=== PATIENT | male | born 1970 | race Caucasian/White ===

== ENCOUNTER 2017-03-31 08:07 | Emergency (ER) | payer SELFPAY ==
[~2017-03-31 08:07] MED LIST: CEPH500C PO; CYCL10TA9 PO; DOXY100C2 PO; HYDR-1231 PO; HYDR-2997 PO
--- OUTSIDE RECORDS SUMMARY | 2017-04-01 18:19 | XMS REPORT | Continuity of Care Document ---
Author Author [facility] Organization [facility] Address Unknown Phone Unavailable Allergies Active Description Code Type Severity Reaction Onset Reported/Identified Relationship to Patient Clinical Status Yes No Known Drug Allergies [id number] Drug Allergy Mild N/A 10/18/2009 Medications Problems Date Dx Coded Attending Type Code Diagnosis Diagnosed By 03/12/2014 DELIO ZAIDI APRN Ot 873.42 03/12/2014 DELIO ZAIDI APRN Ot E000.0 03/12/2014 DELIO ZAIDI APRN Ot E016.2 03/12/2014 DELIO ZAIDI APRN Ot E888.1 03/12/2014 DELIO ZAIDI APRN Ot V06.1 Procedures Results Encounters ACCT No. Visit Date/Time Discharge Status Pt. Type Provider Facility Loc./Unit Complaint [id number] 03/12/2014 10:19:00 2013 11:25:00 DIS Emergency DELIO ZAIDI APRN [facility] ER
== END 2017-03-31 08:51 | disposition left against medical advice (07) ==
LOC: EDUNIT# 08:07 → ER 08:09
DX: R10.9 Unspecified abdominal pain (principal); Z53.21 Procedure and treatment not carried out due to patient leaving prior to being seen by health care provider

== ENCOUNTER 2017-04-02 14:31 | Inpatient (IN) | payer OTHER ==
[~2017-04-02] VITALS: Ht 175.3 cm; Wt 81.6 kg
--- OUTSIDE RECORDS SUMMARY | 2017-04-02 14:36 | XMS REPORT | Continuity of Care Document ---
Author Author [facility] Organization [facility] Address Unknown Phone Unavailable Allergies Active Description Code Type Severity Reaction Onset Reported/Identified Relationship to Patient Clinical Status Yes No Known Drug Allergies [id number] Drug Allergy Mild N/A 10/18/2009 Medications Problems Date Dx Coded Attending Type Code Diagnosis Diagnosed By 03/12/2014 DELIO ZAIDI APRN Ot 873.42 03/12/2014 DELIO ZAIDI APRN Ot E000.0 03/12/2014 DELIO ZAIDI APRN Ot E016.2 03/12/2014 DELIO ZAIDI APRN Ot E888.1 03/12/2014 DELIO ZAIDI APRN Ot V06.1 Procedures Results Encounters ACCT No. Visit Date/Time Discharge Status Pt. Type Provider Facility Loc./Unit Complaint [id number] 03/12/2014 10:19:00 2013 11:25:00 DIS Emergency DELIO ZAIDI APRN [facility] ER
[2017-04-02 15:00] LABS: KETONES,URINE NEGATIVE (NEGATIVE); LEUKOCYTE ESTERASE ,URINE 1+ (NEGATIVE); NITRITE,URINE NEGATIVE (NEGATIVE); PH,URINE 7 (5-9); PROTEIN,URINE 1+ (NEGATIVE); UROBILINOGEN,URINE NORMAL (NORMAL)
[2017-04-02 15:01] LABS: BASOPHILS % (AUTO) 0 % (0-10); EOSINOPHILS # (AUTO) 0.1 10^3/uL (0.0-0.3); EOSINOPHILS % (AUTO) 2 % (0-10); LYMPHOCYTES # (AUTO) 1.1 X 10^3 (1.0-4.0); LYMPHOCYTES % (AUTO) 18 % (12-44); MEAN CORPUSCULAR HEMOGLOBIN 32 PG (25-34); MEAN CORPUSCULAR HGB CONC 34 G/DL (32-36); MEAN CORPUSCULAR VOLUME 96 FL (80-99); MEAN PLATELET VOLUME 9.1 FL (7.4-10.4); MONOCYTES # (AUTO) 0.8 X 10^3 (0.0-1.0); MONOCYTES % (AUTO) 13 % (0-12); NEUTROPHILS # (AUTO) 4.2 X 10^3 (1.8-7.8); NEUTROPHILS % (AUTO) 68 % (42-75); PLATELET COUNT 316 10^3/uL (130-400); RED CELL DISTRIBUTION WIDTH 12.6 % (10.0-14.5); WHITE BLOOD COUNT 6.2 10^3/uL (4.3-11.0)
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
[2017-04-02 15:13] LABS: BILIRUBIN,URINE 1+ (NEGATIVE); WBC,URINE RARE /HPF
[2017-04-02] MEDS ORDERED: NS IV 1000 ML 1,000 ML IV ONE (15:16)
[2017-04-02] MEDS ORDERED: fentaNYL INJECTION 100 MCG/2 ML AMP IVP STA ×2 (15:16→17:00)
[2017-04-02 15:24] LABS: ALANINE AMINOTRANSFERASE 18 U/L (0-55); ANION GAP 9 MMOL/L (5-14); ASPARTATE AMINO TRANSFERASE 19 U/L (5-34); BILIRUBIN,TOTAL 0.6 MG/DL (0.1-1.0); BLOOD UREA NITROGEN 10 MG/DL (7-18); BUN/CREATININE RATIO 10; CALCIUM 9.3 MG/DL (8.5-10.1); CARBON DIOXIDE 30 MMOL/L (21-32); CHLORIDE 97 MMOL/L (98-107); CREATININE SERUM 1.04 MG/DL (0.60-1.30); GFR ESTIMATED > 60; GLUCOSE 122 MG/DL (70-105); HEMOLYSIS 51 (-100-29); ICTERUS 0.6 (-100-1.9); LIPASE 6 U/L (8-78); LIPEMIA 3 (-100-49); POTASSIUM 4.2 MMOL/L (3.6-5.0); SODIUM 136 MMOL/L (135-145); TOTAL PROTEIN 6.9 GM/DL (6.4-8.2)
[2017-04-02] MEDS ORDERED: ONDANSETRON 4 MG/2 ML (SDV) Z0FRAN IVP ONE (15:30)
[2017-04-02] MEDS ORDERED: NS 100 ML (IVPB) BAG IV ONE ×2 (15:30→15:45)
[2017-04-02] MEDS ORDERED: CATHETER FLUSH 10 ML SYR IV PRN ×3 (15:30→18:30)
[2017-04-02] MEDS ORDERED: IOHEXOL 350 MG/ML 100 ML (OMNIPAQUE 350) VIAL IV ONE ×2 (15:30→15:45)
--- NOTE | 2017-04-02 16:19 | Diagnostic Imaging Report ---
PROCEDURE: CT abdomen and pelvis with contrast, rule out appendicitis. TECHNIQUE: Multiple contiguous axial images were obtained through the abdomen and pelvis after the administration of intravenous contrast. INDICATION: Right abdominal pain and distention. FINDINGS: There is mild dependent atelectasis in the visualized lung bases. There is mild low-density throughout the liver. No focal hepatic or gallbladder abnormality is identified. Spleen and pancreas are also unremarkable in appearance. There is no evidence of adrenal gland lesion. Contrast opacifies both renal collecting systems without evidence of hydronephrosis. There is an approximately 0.4 cm cyst in the lower pole of the right kidney. There is diffuse fluid distention of stomach and proximal small bowel to the level of the ileum. There may be distortion of the omental architecture in the lower abdomen. Distal ileum does demonstrate fluid distention, and there is mild stool seen throughout the colon. The appendix is visualized in the right lower quadrant and is mildly prominent in diameter with a small amount of adjacent free fluid. Mild pelvic free fluid is also noted. There is no organized fluid collection to indicate an abscess. There is moderate mural thickening involving the bladder. IMPRESSION: Mural thickening and dilatation of the proximal small bowel may represent enteritis. Given possible omental distortion in the lower abdomen, possibility of adhesion causing partial obstruction is not excluded. The appendix is prominent measuring approximately 0.7 cm in diameter in the right lower quadrant. Small amount of surrounding free fluid may be sympathetic, and there is also mild pelvic peritoneal fluid present. Acute appendicitis is not excluded but considered somewhat less likely. Mural thickening of the bladder is indicative of cystitis, and correlation with urinalysis would be of value. Dictated by: Dictated on workstation # [id number]
--- OUTSIDE RECORDS SUMMARY | 2017-04-02 17:44 | XMS REPORT | Continuity of Care Document ---
Author Author [facility] Organization [facility] Address Unknown Phone Unavailable Allergies Active Description Code Type Severity Reaction Onset Reported/Identified Relationship to Patient Clinical Status Yes No Known Drug Allergies [id number] Drug Allergy Mild N/A 10/18/2009 Medications Problems Date Dx Coded Attending Type Code Diagnosis Diagnosed By 03/12/2014 DELIO ZAIDI APRN Ot 873.42 03/12/2014 DELIO ZAIDI APRN Ot E000.0 03/12/2014 DELIO ZAIDI APRN Ot E016.2 03/12/2014 DELIO ZAIDI APRN Ot E888.1 03/12/2014 DELIO ZAIDI APRN Ot V06.1 Procedures Results Encounters ACCT No. Visit Date/Time Discharge Status Pt. Type Provider Facility Loc./Unit Complaint [id number] 03/12/2014 10:19:00 2013 11:25:00 DIS Emergency DELIO ZAIDI APRN [facility] ER
--- NOTE | 2017-04-02 18:06 | Diagnostic Imaging Report ---
INDICATION: NG tube placement KUB obtained at 5:53 hours p.m. FINDINGS: There is an NG tube seen with tip overlying the proximal stomach. The heart is normal in size. The lungs are clear. There is no pneumothorax or pleural fluid. IMPRESSION: NG tube tip overlying the proximal stomach. No focal infiltrate or pneumothorax or pleural fluid. Dictated by: Dictated on workstation # [id number]
[2017-04-02 18:15] VITALS: BP 135/80
[2017-04-02] MEDS: NS IV 1000 ML 1,000 ML IV SCH (18:27)
[2017-04-02] MEDS ORDERED: KETOROLAC 30 MG/ML VIAL IV PRN (18:30)
[2017-04-02] MEDS ORDERED: CHLORASEPTIC SPRAY 177 ML LIQUID MC PRN (18:30)
[2017-04-02] MEDS ORDERED: PROMETHAZINE INJ 25 MG/ML (PHENERGAN) AMP IV PRN (18:30)
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
[2017-04-02 19:55] VITALS: BP 130/71
[2017-04-02] MEDS: morphine INJ 4 MG/ML 1 ML (VIAL/SYRINGE) IV PRN ×2 (20:09→22:51)
[2017-04-02] MEDS: FAMOTIDINE 20MG/2ML IV (PEPCID) IV SCH (20:09)
[2017-04-02] MEDS: NICOTINE 21 MG (NICODERM) PATCH TD SCH (20:37)
[2017-04-02] MEDS: ONDANSETRON 4 MG/2 ML (SDV) Z0FRAN IV PRN (20:37)
[2017-04-03] VITALS: BP 117/69
[2017-04-03] MEDS: morphine INJ 4 MG/ML 1 ML (VIAL/SYRINGE) IV PRN ×6 (01:07→23:00)
[2017-04-03] MEDS: NS IV 1000 ML 1,000 ML IV SCH ×5 (01:30→23:00)
[2017-04-03 04:00] VITALS: BP 124/69
[2017-04-03 05:35] LABS: BASOPHILS % (AUTO) 0 % (0-10); EOSINOPHILS # (AUTO) 0.2 10^3/uL (0.0-0.3); EOSINOPHILS % (AUTO) 3 % (0-10); LYMPHOCYTES % (AUTO) 17 % (12-44); MEAN CORPUSCULAR HEMOGLOBIN 32 PG (25-34); MEAN CORPUSCULAR HGB CONC 33 G/DL (32-36); MEAN CORPUSCULAR VOLUME 97 FL (80-99); MEAN PLATELET VOLUME 9.2 FL (7.4-10.4); MONOCYTES # (AUTO) 0.9 X 10^3 (0.0-1.0); MONOCYTES % (AUTO) 15 % (0-12); NEUTROPHILS # (AUTO) 3.9 X 10^3 (1.8-7.8); NEUTROPHILS % (AUTO) 66 % (42-75); PLATELET COUNT 266 10^3/uL (130-400); RED BLOOD COUNT 4.63 10^6/uL (4.35-5.85); RED CELL DISTRIBUTION WIDTH 12.5 % (10.0-14.5); WHITE BLOOD COUNT 5.9 10^3/uL (4.3-11.0)
[2017-04-03 05:52] LABS: ALANINE AMINOTRANSFERASE 17 U/L (0-55); ALBUMIN 3.4 GM/DL (3.2-4.5); ANION GAP 9 MMOL/L (5-14); ASPARTATE AMINO TRANSFERASE 17 U/L (5-34); BILIRUBIN,TOTAL 0.7 MG/DL (0.1-1.0); BLOOD UREA NITROGEN 10 MG/DL (7-18); BUN/CREATININE RATIO 9; CALCIUM 8.6 MG/DL (8.5-10.1); CARBON DIOXIDE 27 MMOL/L (21-32); CHLORIDE 103 MMOL/L (98-107); CREATININE SERUM 1.09 MG/DL (0.60-1.30); GFR ESTIMATED > 60; GLUCOSE 97 MG/DL (70-105); POTASSIUM 4.2 MMOL/L (3.6-5.0); SODIUM 139 MMOL/L (135-145); TOTAL PROTEIN 6.1 GM/DL (6.4-8.2)
[2017-04-03] MEDS: ONDANSETRON 4 MG/2 ML (SDV) Z0FRAN IV PRN ×2 (06:59→17:26)
[2017-04-03 07:49] VITALS: BP 130/81
[2017-04-03] MEDS ORDERED: DIATRIZOATE MEGLUM/SODIUM 37% 120 ML (GASTROGRAFIN) NG ONE (09:15)
[2017-04-03] MEDS: NICOTINE 21 MG (NICODERM) PATCH TD SCH (09:34)
[2017-04-03] MEDS: NICOTINE PATCH REMOVAL TP SCH (09:35)
[2017-04-03] MEDS: FAMOTIDINE 20MG/2ML IV (PEPCID) IV SCH ×2 (09:41→20:32)
--- NOTE | 2017-04-03 11:44 | Progress Note ---
Subjective Date Seen by Provider: Apr 03, 2017 Time Seen by Provider: 08:53 Subjective/Events-last exam Patient no new complaints. Not passing any flatus or any bowel movement. Abdominal pain minimal. NG tube in place. Down for small bowel follow- through. Denies any nausea vomiting fever sweats chills shortness of breath or chest pain. Objective Exam Vital Signs Date Time Temp Pulse Resp B/P (MAP) Pulse Ox O2 Delivery O2 Flow Rate FiO2 04/03/17 07:49 99.1 96 20 130/81 97 Room Air 04/03/17 04:00 98.9 85 18 124/69 93 Room Air 04/03/17 00:00 98.1 86 16 117/69 97 Room Air 04/02/17 20:10 Room Air 04/02/17 19:55 96.8 76 16 130/71 99 Room Air 04/02/17 18:15 96.8 77 12 135/80 100 Room Air 04/02/17 18:05 71 18 100 Room Air 04/02/17 14:35 98.0 79 18 141/90 98 Room Air I & O 04/03/17 07:00 Intake Total 2000 ml Output Total 1150 ml Balance 850 ml Capillary Refill : Less Than 3 Seconds General Appearance: WD/WN HEENT: PERRL/EOMI Neck: Normal Inspection, Non Tender Respiratory: Chest Non Tender, No Accessory Muscle Use, No Respiratory Distress Cardiovascular: Regular Rate, Rhythm Peripheral Pulses: 2+ Dorsalis Pedis (R), 2+ Left Dors-Pedis (L), 2+ Radial Pulses (R), 2+ Radial Pulses (L) Gastrointestinal: normal bowel sounds, soft, distended, rebound, tenderness ( generalized tenderness minimal), No mass, other Extremity: Non Tender, No Calf Tenderness Neurologic/Psychiatric: Alert, Oriented x3 Skin: Normal Color, Warm/Dry Results Lab Laboratory Tests 04/02/17 14:45: Urine Color YELLOW, Urine Clarity CLEAR, Urine pH 7, Urine Specific [place] 1.015L, Urine Protein 1+H, Urine Glucose (UA) NEGATIVE, Urine Ketones NEGATIVE, Urine Nitrite NEGATIVE, Urine Bilirubin 1+H, Urine Urobilinogen NORMAL, Urine Leukocyte Esterase 1+H, Urine RBC (Auto) NEGATIVE, Urine RBC RARE, Urine WBC RARE, Urine Squamous Epithelial Cells 2-5, Urine Crystals PRESENTH, Urine Amorphous Sediment FEW AMRIT URATESH, Urine Bacteria NEGATIVE, Urine Casts NONE, Urine Mucus NEGATIVE, Urine Culture Indicated NO 04/02/17 14:53: White Blood Count 6.2, Red Blood Count 4.90, Hemoglobin 15.8, Hematocrit 47, Mean Corpuscular Volume 96, Mean Corpuscular Hemoglobin 32, Mean Corpuscular Hemoglobin Concent 34, Red Cell Distribution Width 12.6, Platelet Count 316, Mean Platelet Volume 9.1, Neutrophils (%) (Auto) 68, Lymphocytes (%) (Auto) 18, Monocytes (%) (Auto) 13H, Eosinophils (%) (Auto) 2, Basophils (%) (Auto) 0, Neutrophils # (Auto) 4.2, Lymphocytes # (Auto) 1.1, Monocytes # (Auto) 0.8, Eosinophils # (Auto) 0.1, Basophils # (Auto) 0.0, Sodium Level 136, Potassium Level 4.2, Chloride Level 97L, Carbon Dioxide Level 30, Anion Gap 9, Blood Urea Nitrogen 10, Creatinine 1.04, Estimat Glomerular Filtration Rate > 60, BUN/ Creatinine Ratio 10, Glucose Level 122H, Calcium Level 9.3, Total Bilirubin 0.6 , Aspartate Amino Transf (AST/SGOT) 19, Alanine Aminotransferase (ALT/SGPT) 18, Alkaline Phosphatase 71, Total Protein 6.9, Albumin 4.0, Lipase 6L 04/03/17 05:20: White Blood Count 5.9, Red Blood Count 4.63, Hemoglobin 14.8, Hematocrit 45, Mean Corpuscular Volume 97, Mean Corpuscular Hemoglobin 32, Mean Corpuscular Hemoglobin Concent 33, Red Cell Distribution Width 12.5, Platelet Count 266, Mean Platelet Volume 9.2, Neutrophils (%) (Auto) 66, Lymphocytes (%) (Auto) 17, Monocytes (%) (Auto) 15H, Eosinophils (%) (Auto) 3, Basophils (%) (Auto) 0, Neutrophils # (Auto) 3.9, Lymphocytes # (Auto) 1.0, Monocytes # (Auto) 0.9, Eosinophils # (Auto) 0.2, Basophils # (Auto) 0.0, Sodium Level 139, Potassium Level 4.2, Chloride Level 103, Carbon Dioxide Level 27, Anion Gap 9, Blood Urea Nitrogen 10, Creatinine 1.09, Estimat Glomerular Filtration Rate > 60, BUN/ Creatinine Ratio 9, Glucose Level 97, Calcium Level 8.6, Total Bilirubin 0.7, Aspartate Amino Transf (AST/SGOT) 17, Alanine Aminotransferase (ALT/SGPT) 17, Alkaline Phosphatase 62, Total Protein 6.1L, Albumin 3.4 Assessment/Plan Assessment/Plan Assessment/Plan Partial bowel obstruction. Nausea and vomiting. Generalized abdominal pain History of exploratory laparotomy await small bowel follow trough results. npo. NG tube to LIWS scd's for dvt prophylaxis Clinical Quality Measures DVT/VTE Risk/Contraindication: Risk Factor Score Per Nursin RFS Level Per Nursing on Admit: 2=Moderate BETH OLSON DO Apr 03, 2017 11:43
[2017-04-03 12:00] VITALS: BP 124/70
[2017-04-03 15:40] VITALS: BP 124/73
--- NOTE | 2017-04-03 17:22 | Diagnostic Imaging Report ---
EXAMINATION: Small bowel follow-through. 120 mL of Gastrografin was introduced. The patient has an NG tube which was utilized for transfer of Gastrografin injection. INDICATION: Partial small bowel obstruction. FINDINGS: Technology Development Intern image was performed and demonstrates dilated small bowel loops. There is air in the colon and a small amount of thickening within the right colon. The stomach and proximal small bowel loops which are dilated, unopacified. However, despite imaging for 9 hours, the ileum is not opacified. Based on the presence of colonic air, this is the likely related to a high-grade partial small bowel obstruction. IMPRESSION: Findings suggestive of a distal high-grade small bowel obstruction. Findings were discussed with Dr. Perez at time of dictation. Dictated by: Dictated on workstation # [id number]
[2017-04-03 19:50] VITALS: BP 137/80
[2017-04-04] VITALS (7 sets, daily range): BP systolic 120–139; BP diastolic 65–79
[2017-04-04] MEDS: NS IV 1000 ML 1,000 ML IV SCH ×4 (04:31→19:46)
[2017-04-04] MEDS: ONDANSETRON 4 MG/2 ML (SDV) Z0FRAN IV PRN ×2 (05:50→19:46)
[2017-04-04] MEDS: morphine INJ 4 MG/ML 1 ML (VIAL/SYRINGE) IV PRN ×2 (05:50→19:46)
[2017-04-04 06:53] LABS: MEAN PLATELET VOLUME 9.1 FL (7.4-10.4); RED BLOOD COUNT 4.61 10^6/uL (4.35-5.85); RED CELL DISTRIBUTION WIDTH 12.4 % (10.0-14.5); WHITE BLOOD COUNT 4.4 10^3/uL (4.3-11.0)
[2017-04-04 07:12] LABS: ALANINE AMINOTRANSFERASE 14 U/L (0-55); ALBUMIN 3.6 GM/DL (3.2-4.5); ANION GAP 13 MMOL/L (5-14); ASPARTATE AMINO TRANSFERASE 14 U/L (5-34); BILIRUBIN,TOTAL 0.7 MG/DL (0.1-1.0); BLOOD UREA NITROGEN 14 MG/DL (7-18); BUN/CREATININE RATIO 15; CALCIUM 8.6 MG/DL (8.5-10.1); CARBON DIOXIDE 23 MMOL/L (21-32); CHLORIDE 105 MMOL/L (98-107); CREATININE SERUM 0.95 MG/DL (0.60-1.30); GFR ESTIMATED > 60; GLUCOSE 92 MG/DL (70-105); MAGNESIUM 2.3 MG/DL (1.8-2.4); PHOSPHORUS 3.2 MG/DL (2.3-4.7); POTASSIUM 4.3 MMOL/L (3.6-5.0); SODIUM 141 MMOL/L (135-145); TOTAL PROTEIN 6.2 GM/DL (6.4-8.2)
--- NOTE | 2017-04-04 08:54 | Diagnostic Imaging Report ---
Upright and supine views of the abdomen. INDICATION: Followup small bowel obstruction. FINDINGS: There is persistent dilatation of the small bowel loops mostly in the left upper quadrant, perhaps slightly improved compared to 04/03/17 small bowel follow-through. Still significant air-fluid levels are seen. There is air and fecal material noted in the colon and rectum suggestive of partial obstruction. NG tube is seen. No pneumoperitoneum. IMPRESSION: Findings suggestive of partial small bowel obstruction with suggestion of slight improvement compared to 04/03/17. Dictated by: Dictated on workstation # [id number]
--- NOTE | 2017-04-04 09:02 | Progress Note ---
Subjective Time Seen by Provider: 08:57 Subjective/Events-last exam Patient resting in bed. Even respirations. No distress. Reports he is passing a lot of flatus. Objective Exam Vital Signs Date Time Temp Pulse Resp B/P (MAP) Pulse Ox O2 Delivery O2 Flow Rate FiO2 04/04/17 04:17 99.8 97 18 120/66 96 Room Air 04/04/17 00:53 100.0 90 19 126/68 94 Room Air 04/03/17 19:50 99.6 88 18 137/80 98 Room Air 04/03/17 15:40 99.2 90 18 124/73 96 Room Air 04/03/17 12:00 95.9 80 20 124/70 96 Room Air I & O 04/04/17 07:00 Intake Total 2000 ml Output Total 2980 ml Balance -980 ml Capillary Refill : Less Than 3 Seconds General Appearance: WD/WN HEENT: PERRL/EOMI Neck: Normal Inspection, Non Tender Respiratory: Chest Non Tender, No Accessory Muscle Use, No Respiratory Distress Cardiovascular: Regular Rate, Rhythm Peripheral Pulses: 2+ Dorsalis Pedis (R), 2+ Left Dors-Pedis (L), 2+ Radial Pulses (R), 2+ Radial Pulses (L) Gastrointestinal: normal bowel sounds, soft, no organomegaly, No mass, other Extremity: Non Tender, No Calf Tenderness Neurologic/Psychiatric: Alert, Oriented x3 Skin: Normal Color, Warm/Dry Results Lab Laboratory Tests Test 04/02/17 14:45 04/02/17 14:53 04/03/17 05:20 04/04/17 06:30 Range/Units Urine Color YELLOW Urine Clarity CLEAR Urine pH 7 5-9 Urine Specific [place] 1.015 L 1.016-1.022 Urine Protein 1+ H NEGATIVE Urine Glucose (UA) NEGATIVE NEGATIVE Urine Ketones NEGATIVE NEGATIVE Urine Nitrite NEGATIVE NEGATIVE Urine Bilirubin 1+ H NEGATIVE Urine Urobilinogen NORMAL NORMAL MG/DL Urine Leukocyte Esterase 1+ H NEGATIVE Urine RBC (Auto) NEGATIVE NEGATIVE Urine RBC RARE /HPF Urine WBC RARE /HPF Urine Squamous Epithelial Cells 2-5 /HPF Urine Crystals PRESENT H /LPF Urine Amorphous Sediment FEW AMRIT URATES H /LPF Urine Bacteria NEGATIVE /HPF Urine Casts NONE /LPF Urine Mucus NEGATIVE /LPF Urine Culture Indicated NO White Blood Count 6.2 5.9 4.4 4.3-11.0 10^3/uL Red Blood Count 4.90 4.63 4.61 4.35-5.85 10^6/uL Hemoglobin 15.8 14.8 14.9 13.3-17.7 G/DL Hematocrit 47 45 45 40-54 % Mean Corpuscular Volume 96 97 97 80-99 FL Mean Corpuscular Hemoglobin 32 32 32 25-34 PG Mean Corpuscular Hemoglobin Concent 34 33 33 32-36 G/DL Red Cell Distribution Width 12.6 12.5 12.4 10.0-14.5 % Platelet Count 316 266 291 130-400 10^3/uL Mean Platelet Volume 9.1 9.2 9.1 7.4-10.4 FL Neutrophils (%) (Auto) 68 66 42-75 % Lymphocytes (%) (Auto) 18 17 12-44 % Monocytes (%) (Auto) 13 H 15 H 0-12 % Eosinophils (%) (Auto) 2 3 0-10 % Basophils (%) (Auto) 0 0 0-10 % Neutrophils # (Auto) 4.2 3.9 1.8-7.8 X 10^3 Lymphocytes # (Auto) 1.1 1.0 1.0-4.0 X 10^3 Monocytes # (Auto) 0.8 0.9 0.0-1.0 X 10^3 Eosinophils # (Auto) 0.1 0.2 0.0-0.3 10^3/uL Basophils # (Auto) 0.0 0.0 0.0-0.1 10^3/uL Sodium Level 136 139 141 135-145 MMOL/L Potassium Level 4.2 4.2 4.3 3.6-5.0 MMOL/L Chloride Level 97 L 103 105 98-107 MMOL/L Carbon Dioxide Level 30 27 23 21-32 MMOL/L Anion Gap 9 9 13 5-14 MMOL/L Blood Urea Nitrogen 10 10 14 7-18 MG/DL Creatinine 1.04 1.09 0.95 0.60-1.30 MG/DL Estimat Glomerular Filtration Rate > 60 > 60 > 60 BUN/Creatinine Ratio 10 9 15 Glucose Level 122 H 97 92 70-105 MG/DL Calcium Level 9.3 8.6 8.6 8.5-10.1 MG/DL Total Bilirubin 0.6 0.7 0.7 0.1-1.0 MG/DL Aspartate Amino Transf (AST/SGOT) 19 17 14 5-34 U/L Alanine Aminotransferase (ALT/SGPT) 18 17 14 0-55 U/L Alkaline Phosphatase 71 62 62 40-136 U/L Total Protein 6.9 6.1 L 6.2 L 6.4-8.2 GM/DL Albumin 4.0 3.4 3.6 3.2-4.5 GM/DL Lipase 6 L 8-78 U/L Phosphorus Level 3.2 2.3-4.7 MG/DL Magnesium Level 2.3 1.8-2.4 MG/DL Laboratory Tests 04/04/17 06:30: White Blood Count 4.4, Red Blood Count 4.61, Hemoglobin 14.9, Hematocrit 45, Mean Corpuscular Volume 97, Mean Corpuscular Hemoglobin 32, Mean Corpuscular Hemoglobin Concent 33, Red Cell Distribution Width 12.4, Platelet Count 291, Mean Platelet Volume 9.1, Sodium Level 141, Potassium Level 4.3, Chloride Level 105, Carbon Dioxide Level 23, Anion Gap 13, Blood Urea Nitrogen 14, Creatinine 0.95, Estimat Glomerular Filtration Rate > 60, BUN/Creatinine Ratio 15, Glucose Level 92, Calcium Level 8.6, Phosphorus Level 3.2, Magnesium Level 2.3, Total Bilirubin 0.7, Aspartate Amino Transf (AST/SGOT) 14, Alanine Aminotransferase ( ALT/SGPT) 14, Alkaline Phosphatase 62, Total Protein 6.2L, Albumin 3.6 Assessment/Plan Assessment/Plan Assessment/Plan Partial bowel obstruction. Patient reports he is passing lots of Flatus. No BM at this time. Nausea and vomiting. Generalized abdominal pain History of exploratory laparotomy npo. NG tube to LIWS. Continue to monitor patient closely. Encourage getting up and walking. scd's for dvt prophylaxis Perez- Patient passing some flatus, but minimal he states to me. Patient walking halls. Feeling slightly better. KUB suggestive of PSBO with some improvement. Denies n/v fever sweats chills shortness of breath or chest pain. general no acute distress heart reg lungs nonlabored abdomen less distended and less tender no guarding or rebounding ext nontender assessment as above- patient feeling better today. will continue to ambulate if continues to improve start diet and dc ng tube kub in am Clinical Quality Measures DVT/VTE Risk/Contraindication: Risk Factor Score Per Nursin RFS Level Per Nursing on Admit: 2=Moderate NABEEL JAEGER APRN Apr 04, 2017 9:02 am BETH PEREZ DO Apr 04, 2017 4:18 pm
[2017-04-04] MEDS: FAMOTIDINE 20MG/2ML IV (PEPCID) IV SCH ×2 (09:17→20:39)
[2017-04-04] MEDS: NICOTINE 21 MG (NICODERM) PATCH TD SCH (09:17)
[2017-04-04] MEDS: NICOTINE PATCH REMOVAL TP SCH (09:18)
[2017-04-05] MEDS: ONDANSETRON 4 MG/2 ML (SDV) Z0FRAN IV PRN (01:53)
[2017-04-05 03:50] VITALS: BP_SYST 127; BP_SYST 130; BP_DIAS 61; BP_DIAS 74
[2017-04-05] MEDS: NS IV 1000 ML 1,000 ML IV SCH (03:52)
== END 2017-04-05 05:40 | disposition home or self-care (01) | DRG 390 ==
LOC: EDUNIT# 14:31 → ER 14:33 → 4TH 17:15
PROVIDERS: ADMIT Surgery; ATTEND Surgery
PROC: 0D9670Z Drainage of Stomach with Drainage Device, Via Natural or Artificial Opening (ICD-10-PCS; principal; 2017-04-02)
DX: K56.60 Unspecified intestinal obstruction (principal); R11.2 Nausea with vomiting, unspecified; R10.84 Generalized abdominal pain; F17.210 Nicotine dependence, cigarettes, uncomplicated
CPT/HCPCS: 36415; 71010; 74020; 74177; 74250; 80053; 81000; 83690; 83735; 84100; 85025; 85027; 96374; 96375; 96376

== ENCOUNTER 2020-08-22 16:35 | Inpatient (IN) | payer SELFPAY ==
[~2020-08-22] VITALS: Ht 175.3 cm; Wt 86.0 kg
[2020-08-22] MEDS ORDERED: cefTRIAXone FOR IV USE 1,000 MG in WATER (STERILE) FOR INJECTION 10 ML IV STA (17:02)
[2020-08-22] MEDS ORDERED: CLINDAMYCIN INJECTION 300 MG in NS (IVPB) 50 ML IV STA (17:02)
[2020-08-22] MEDS ORDERED: fentaNYL INJECTION 100 MCG/2 ML AMP IVP STA (17:06)
[2020-08-22] MEDS ORDERED: VANCOMYCIN INJECTION 750 MG in NS (IVPB) 250 ML IV SCH (17:15)
--- NOTE | 2020-08-22 17:22 | ED Integumentary General ---
General Chief Complaint: Skin/Wound Problems Stated Complaint: INGROWN HAIR ON GROIN Source: patient Exam Limitations: no limitations History of Present Illness Date Seen by Provider: Aug 22, 2020 Time Seen by Provider: 16:45 Initial Comments 50-year-old male presents with ingrown hair on his groin patient reports that started 2 days ago because of drainage since gotten significantly enlarged and painful today. Patient has surrounding warmth and erythema to the skin. That the pain goes up his groin and into his left thigh. Patient states some occasional chills. No other systemic complaints. Allergies and Home Medications Allergies Coded Allergies: No Known Drug Allergies (Unverified , 10/18/09) Home Medications No Active Prescriptions or Reported Meds Patient Home Medication List Home Medication List Reviewed: Yes Review of Systems Review of Systems Constitutional: chills; No fever Respiratory: No cough, No short of breath Cardiovascular: No chest pain, No palpitations Gastrointestinal: No diarrhea, No nausea, No vomiting Genitourinary: no symptoms reported Musculoskeletal: no symptoms reported Skin: see HPI Psychiatric/Neurological: No Symptoms Reported Endocrine: No Symptoms Reported Hematologic/Lymphatic: No Symptoms Reported Past Ewmzqls-Exnnyw-Xymqpp Hx Past Med/Social Hx: Reviewed Nursing Past Med/Soc Hx Patient Social History Type Used: Cigarettes Recent Foreign Travel: No Contact w/Someone Who Travel: No Past Medical History Surgeries: Yes (exp lap with bowel repair DUE TO TRAUMA) Respiratory: No Cardiac: No Neurological: No Genitourinary: No Gastrointestinal: No Musculoskeletal: No Endocrine: No HEENT: No Cancer: No Psychosocial: No Integumentary: No Blood Disorders: No Family Medical History No Pertinent Family Hx Physical Exam Vital Signs Vital Signs - First Documented 08/22/20 16:39 Temp 36.5 Pulse 99 Resp 18 B/P (MAP) 133/68 (89) O2 Delivery Room Air Capillary Refill : General Appearance: mild distress Neck: supple, normal inspection Cardiovascular: normal peripheral pulses, regular rate, rhythm Respiratory: chest non-tender, lungs clear, normal breath sounds Gastrointestinal: non tender, soft Extremities: normal range of motion, non-tender Skin: other (large 10 x 6 cm abscess in the left groin with extension of induration into the left upper thigh with surrounding cellulitis) Skin Problem Location: other (left groin) Skin Problem Character: abscess, drainage, erythema, swelling Progress/Results/Core Measures Results/Orders Lab Results Laboratory Tests Test 08/22/20 17:18 Range/Units White Blood Count 14.1 H 4.3-11.0 10^3/uL Red Blood Count 4.56 4.30-5.52 10^6/uL Hemoglobin 14.2 13.3-17.7 g/dL Hematocrit 43 40-54 % Mean Corpuscular Volume 95 80-99 fL Mean Corpuscular Hemoglobin 31 25-34 pg Mean Corpuscular Hemoglobin Concent 33 32-36 g/dL Red Cell Distribution Width 12.0 10.0-14.5 % Platelet Count 322 130-400 10^3/uL Mean Platelet Volume 9.2 9.0-12.2 fL Sodium Level 133 L 135-145 MMOL/L Potassium Level 3.8 3.6-5.0 MMOL/L Chloride Level 101 98-107 MMOL/L Carbon Dioxide Level 21 21-32 MMOL/L Anion Gap 11 5-14 MMOL/L Blood Urea Nitrogen 8 7-18 MG/DL Creatinine 1.17 0.60-1.30 MG/DL Estimat Glomerular Filtration Rate > 60 BUN/Creatinine Ratio 7 Glucose Level 111 H 70-105 MG/DL Lactic Acid Level 1.45 0.50-2.00 MMOL/L Calcium Level 8.5 8.5-10.1 MG/DL Corrected Calcium 8.7 8.5-10.1 MG/DL Total Bilirubin 0.6 0.1-1.0 MG/DL Aspartate Amino Transf (AST/SGOT) 26 5-34 U/L Alanine Aminotransferase (ALT/SGPT) 31 0-55 U/L Alkaline Phosphatase 110 40-136 U/L C-Reactive Protein High Sensitivity 10.15 H 0.00-0.50 MG/DL Total Protein 7.0 6.4-8.2 GM/DL Albumin 3.8 3.2-4.5 GM/DL My Orders Orders - RICKETTS,TORI L DO Cbc No Diff (08/22/20 16:58) Comprehensive Metabolic Panel (08/22/20 16:58) Hs C Reactive Protein (08/22/20 16:58) Blood Culture (08/22/20 16:58) Lactic Acid Analyzer (08/22/20 16:58) Ed Iv/Invasive Line Start (08/22/20 16:58) Ceftriaxone For Iv Use (Rocephin For I (08/22/20 17:02) Vancomycin Injection (Vancomycin Injecti (08/22/20 17:15) Clindamycin Injection (Cleocin Injection (08/22/20 17:02) Fentanyl Injection (Sublimaze Injection (08/22/20 17:06) Vancomycin Injection (Vancomycin Injecti (08/22/20 17:30) Vital Signs/I&O 08/22/20 16:39 Temp 36.5 Pulse 99 Resp 18 B/P (MAP) 133/68 (89) O2 Delivery Room Air Departure Communication (Admissions) Time/Spoke to Admitting Phy: 17:00 Okay to admit patient, start clindamycin, Vanco, nothing by mouth after midnight Impression Primary Impression: Abscess of left groin Additional Impression: Cellulitis of left thigh Disposition: ADMITTED INPATIENT Condition: Stable Admissions Decision to Admit Reason: Admit from ER (General) Decision to Admit/Date: Aug 22, 2020 Time/Decision to Admit Time: 17:00 Departure-Patient Inst. Referrals: MINH AGGARWAL MD (PCP/Family) Primary Care Physician Scripts No Active Prescriptions or Reported Meds TORI RICKETTS DO Aug 22, 2020 17:22
[2020-08-22 17:27] LABS: HEMOGLOBIN 14.2 g/dL (13.3-17.7); MEAN PLATELET VOLUME 9.2 fL (9.0-12.2); WHITE BLOOD COUNT 14.1 10^3/uL (4.3-11.0)
--- NOTE | 2020-08-22 17:29 | NUR ---
LAB CALLED TO DRAW 2ND BLOOD CULTURE.
[2020-08-22] MEDS ORDERED: VANCOMYCIN 1500 MG/NS 500 ML IVPB IV NR ×2 (17:30)
[2020-08-22 17:42] LABS: ALBUMIN 3.8 GM/DL (3.2-4.5); CHLORIDE 101 MMOL/L (98-107); POTASSIUM 3.8 MMOL/L (3.6-5.0); SODIUM 133 MMOL/L (135-145)
[2020-08-22 17:44] LABS: CALCIUM 8.5 MG/DL (8.5-10.1)
[2020-08-22 17:45] LABS: GLUCOSE 111 MG/DL (70-105)
[2020-08-22 17:46] LABS: CARBON DIOXIDE 21 MMOL/L (21-32)
[2020-08-22 17:47] LABS: BILIRUBIN,TOTAL 0.6 MG/DL (0.1-1.0)
[2020-08-22 17:48] LABS: ALKALINE PHOSPHATASE 110 U/L (40-136)
[2020-08-22 17:49] LABS: CREATININE SERUM 1.17 MG/DL (0.60-1.30); GFR ESTIMATED > 60
[2020-08-22 17:50] LABS: BUN/CREATININE RATIO 7
[2020-08-22 17:52] LABS: ALANINE AMINOTRANSFERASE 31 U/L (0-55)
--- NOTE | 2020-08-22 18:20 | NUR ---
ANKITA STAPLES admitted to room 411-1, with an admitting diagnosis of CELLULITIS AND ABSCESS, on 08/22/20 from ED via WHEELCHAIR, accompanied by ED STAFF.ANKITA STAPLES introduced to surroundings, call light, bed controls, phone, TV, temperature control, lights, meal times, smoking policy, visitor policy, side rail policy, bathrooms and showers. Patient Rights given to patient in the handbook. ANKITA STAPLES verbalizes understanding that [facility] is not responsible for the loss or damage to any personal effects or valuables that are kept in the patients posession during their hospitalization. ANKITA STAPLES verbalizes understanding of Interdisciplinary Patient Education. Patient and/or family were informed about the Rapid Response Team and its purpose.
[2020-08-22] MEDS ORDERED: CATHETER FLUSH 10 ML SYR IV PRN (18:45)
--- NOTE | 2020-08-22 18:46 | NUR ---
CR 1.17; CR CL > 60; WT 86.3 KG; VANCO 1500 MG IV GIVEN IN ER; CONTINUE WITH VANCO 1250 MG IV Q12H; TROUGH AFTER 3RD DOSE
[2020-08-22 18:55] VITALS: BP 103/70
--- NOTE | 2020-08-22 19:30 | NUR ---
MEDICATED WITH [facility] REQUESTED FOR LEFT GROIN PAIN. SITE IS VERY RED AND SWOLLEN. AREA MARKED WITH PEN. DENIES OTHER NEEDS OR CONCERNS.
[2020-08-22] MEDS: fentaNYL INJECTION 100 MCG/2 ML AMP IV PRN (19:39)
[2020-08-22 19:59] VITALS: BP 105/69
[2020-08-22] MEDS: CATHETER FLUSH 10 ML SYR IV SCH (21:05)
[2020-08-22] MEDS: CLINDAMYCIN 600 MG/50 ML IVPB 50 ML IV SCH (21:05)
[2020-08-23] VITALS: BP 103/56
--- NOTE | 2020-08-23 | NUR ---
TEMP. 102.6. TACHY AT 113. SEPSIS RISK. DR. BLISS NOTIFIED AND LR STARTED AT 150 C/HR AND XS TYLENOL STARTED. SMALL LUMP WAS NOTED BY PATIENT UNDER LEFT NIPPLE. WILL BE PASSED ON TO DR. BLISS IN AM.
[2020-08-23] MEDS: fentaNYL INJECTION 100 MCG/2 ML AMP IV PRN ×4 (00:05→21:20)
[2020-08-23] MEDS ORDERED: D5 LR IV SOLUTION 1,000 ML IV SCH (00:30)
[2020-08-23] MEDS ORDERED: ACETAMINOPHEN 500 MG TAB (TYLENOL) ONE (00:33)
[2020-08-23] MEDS ORDERED: LACTATED RINGERS 1,000 ML IV ONE (00:33)
[2020-08-23] MEDS: ACETAMINOPHEN 500 MG TAB (TYLENOL) PO PRN ×3 (00:45→21:20)
[2020-08-23] MEDS: LACTATED RINGERS 1,000 ML IV SCH ×4 (00:48→23:07)
--- NOTE | 2020-08-23 02:00 | NUR ---
HAS BEEN RESTING. TEMP. NOW 99.6.
--- NOTE | 2020-08-23 03:20 | NUR ---
This RN took over patient care at this time. Received report and agree with previous RNs assessment. Patient resting with eyes closed.
[2020-08-23 04:39] VITALS: BP 105/67
[2020-08-23 04:53] LABS: BASOPHILS # (AUTO) 0.1 10^3/uL (0.0-0.1); BASOPHILS % (AUTO) 0 % (0-10); EOSINOPHILS # (AUTO) 0.2 10^3/uL (0.0-0.3); EOSINOPHILS % (AUTO) 2 % (0-10); HEMATOCRIT 40 % (40-54); HEMOGLOBIN 13.4 g/dL (13.3-17.7); LYMPHOCYTES # (AUTO) 2.2 10^3/uL (1.0-4.0); LYMPHOCYTES % (AUTO) 16 % (12-44); MEAN CORPUSCULAR HEMOGLOBIN 31 pg (25-34); MEAN CORPUSCULAR HGB CONC 33 g/dL (32-36); MEAN CORPUSCULAR VOLUME 94 fL (80-99); MEAN PLATELET VOLUME 9.2 fL (9.0-12.2); MONOCYTES # (AUTO) 1.2 10^3/uL (0.0-1.0); MONOCYTES % (AUTO) 9 % (0-12); NEUTROPHILS % (AUTO) 73 % (42-75); PLATELET COUNT 351 10^3/uL (130-400); WHITE BLOOD COUNT 13.7 10^3/uL (4.3-11.0)
[2020-08-23 05:03] LABS: ALBUMIN 3.5 GM/DL (3.2-4.5); CHLORIDE 104 MMOL/L (98-107); SODIUM 138 MMOL/L (135-145)
[2020-08-23 05:04] LABS: CALCIUM 8.4 MG/DL (8.5-10.1)
[2020-08-23 05:05] LABS: GLUCOSE 108 MG/DL (70-105)
[2020-08-23 05:06] LABS: TOTAL PROTEIN 6.4 GM/DL (6.4-8.2)
[2020-08-23 05:07] LABS: BILIRUBIN,TOTAL 0.7 MG/DL (0.1-1.0); CARBON DIOXIDE 24 MMOL/L (21-32)
[2020-08-23 05:09] LABS: ALKALINE PHOSPHATASE 134 U/L (40-136); CREATININE SERUM 1.23 MG/DL (0.60-1.30); GFR ESTIMATED > 60
[2020-08-23 05:10] LABS: BUN/CREATININE RATIO 8
[2020-08-23 05:12] LABS: ALANINE AMINOTRANSFERASE 54 U/L (0-55)
[2020-08-23] MEDS: CLINDAMYCIN 600 MG/50 ML IVPB 50 ML IV SCH ×3 (05:22→23:07)
[2020-08-23] MEDS: VANCOMYCIN 1250 MG/NS 250 ML IVPB IV SCH ×4 (06:12→17:16)
[2020-08-23] MEDS: CATHETER FLUSH 10 ML SYR IV SCH ×3 (06:12→19:29)
[2020-08-23 07:31] VITALS: BP 104/68
[2020-08-23] MEDS: cefTRIAXone 1,000 MG/SWFI 10 ML IV PUSH IV SCH ×2 (08:04)
[2020-08-23] MEDS ORDERED: IBUP-2473 PO (10:03)
--- NOTE | 2020-08-23 10:05 | NUR ---
SPOKE WITH THE PT TO COMPLETE THE MED REC PT DENIES TAKING ANY PRESCRIPTION MEDICATION OTC MEDS: IBUPROFEN 200MG - PT SAYS SHE TAKES 2-3 TABS AT A TIME
[2020-08-23 11:15] VITALS: BP 96/59
--- NOTE | 2020-08-23 12:02 | Consultation - Surgery ---
ALBERTA MARCUS MED STUDENT 08/23/20 1202: History of Present Illness History of Present Illness Patient Consulted On(darling/time) 08/23/20 11:57 Date Seen by Provider: Aug 23, 2020 Time Seen by Provider: 07:00 History of Present Illness Surgery consult for cellulitis/abscess HPI per ED: 50-year-old male presents with ingrown hair on his groin patient reports that s tarted 2 days ago because of drainage since gotten significantly enlarged and painful today. Patient has surrounding warmth and erythema to the skin. That the pain goes up his groin and into his left thigh. Patient states some occasional chills. No other systemic complaints. Pt had ingrown hair 3d ago. He tried squeezing it and had a small amount of yellow-white drainage. It was a quarter size that enlarged the next day. Pt reports pain when pushing on area and is just sore, 9/10 pain. Pain radiates down L inner thigh for a couple of inches. Pt felt like he had a fever and HOLDEN. He tried ibuprofen, silver water (an immune booster), hydrocodone which helped w/ pain relief. Pain is worsened by squeezing and walking. Pt feels swelling has decreased and is 6/10 pain today. Pt denies previous occurrences. Area was outlined. Erythema and swelling has decreased. Area is hard. Allergies and Home Medications Allergies Coded Allergies: No Known Drug Allergies (Unverified , 10/18/09) Home Medications Ibuprofen 200 Mg Tablet, 400-600 MG PO Q8H PRN for PAIN-MILD (1-4), (Reported) Past Uqqclae-Pknvla-Ifuomo Hx Patient Social History Alcohol Use: Occasionally Uses (2-3 beers a couple of times a wk) Recreational Drug Use: Yes (weed, meth) Smoking Status: Current Everyday Smoker (1/2 ppd since 33 years old) Type Used: Cigarettes Recent Foreign Travel: No Contact w/Someone Who Travel: No Recent Infectious Disease Expo: No Surgeries History of Surgeries: Yes (exp lap with bowel repair DUE TO TRAUMA) Surgeries: Abdominal (ruptured intestines 1992 and scar tissue repair 3 yrs ago) Respiratory History of Respiratory Disorde: No Cardiovascular History of Cardiac Disorders: No Neurological History of Neurological Disord: No Genitourinary History of Genitourinary Disor: No Gastrointestinal History of Gastrointestinal Di: No Musculoskeletal History of Musculoskeletal Dis: No Endocrine History of Endocrine Disorders: No HEENT History of HEENT Disorders: No Cancer History of Cancer: No Psychosocial History of Psychiatric Problem: No Integumentary History of Skin or Integumenta: No Blood Transfusions History of Blood Disorders: No Family Medical History Significant Family History: No Pertinent Family Hx, Heart Disease (grandpa - of heart attack), Cancer (grandpa - lung cancer), Other Conditions/Hx (mom - brain tumor) Review of Systems-General Constitutional: chills, diaphoresis, fever EENTM: No ear discharge, No hearing loss, No ear pain, No blurred vision, No double vision, No eye pain Respiratory: No cough, No dyspnea on exertion Cardiovascular: No chest pain Gastrointestinal: No abdominal pain Musculoskeletal: No joint pain Skin: lumps (L Groin) Psychiatric/Neurological: Headache Physical Exam-General Problems Physical Exam Vital Signs Vital Signs - First Documented 08/22/20 08/22/20 16:39 18:03 Temp 36.5 Pulse 99 Resp 18 B/P (MAP) 133/68 (89) Pulse Ox 98 O2 Delivery Room Air Capillary Refill : Less Than 3 SecondsLess Than 3 Seconds General Appearance: WD/WN, no apparent distress HEENT: PERRL/EOMI Neck: supple Respiratory: lungs clear, normal breath sounds, no respiratory distress, no accessory muscle use Cardiovascular: regular rate, rhythm, no murmur Gastrointestinal: non tender, soft Genital/Rectal: tenderness (L groin mass, erythematous, further within borders, hard) Extremities: no pedal edema, no calf tenderness Neurologic/Psychiatric: alert, normal mood/affect, oriented x 3 Data Review Labs Laboratory Tests 08/22/20 17:18: White Blood Count 14.1H, Red Blood Count 4.56, Hemoglobin 14.2, Hematocrit 43, Mean Corpuscular Volume 95, Mean Corpuscular Hemoglobin 31, Mean Corpuscular Hemoglobin Concent 33, Red Cell Distribution Width 12.0, Platelet Count 322, Mean Platelet Volume 9.2, Sodium Level 133L, Potassium Level 3.8, Chloride Level 101, Carbon Dioxide Level 21, Anion Gap 11, Blood Urea Nitrogen 8, Creatinine 1.17, Estimat Glomerular Filtration Rate > 60, BUN/Creatinine Ratio 7, Glucose Level 111H, Lactic Acid Level 1.45, Calcium Level 8.5, Corrected Calcium 8.7, Total Bilirubin 0.6, Aspartate Amino Transf (AST/SGOT) 26, Alanine Aminotransferase (ALT/SGPT) 31, Alkaline Phosphatase 110, C-Reactive Protein High Sensitivity 10.15H, Total Protein 7.0, Albumin 3.8 08/23/20 04:30: White Blood Count 13.7H, Red Blood Count 4.27L, Hemoglobin 13.4, Hematocrit 40, Mean Corpuscular Volume 94, Mean Corpuscular Hemoglobin 31, Mean Corpuscular Hemoglobin Concent 33, Red Cell Distribution Width 12.2, Platelet Count 351, Mean Platelet Volume 9.2, Sodium Level 138, Potassium Level 5.0, Chloride Level 104, Carbon Dioxide Level 24, Anion Gap 10, Blood Urea Nitrogen 10, Creatinine 1.23, Estimat Glomerular Filtration Rate > 60, BUN/Creatinine Ratio 8, Glucose Level 108H, Calcium Level 8.4L, Corrected Calcium 8.8, Total Bilirubin 0.7, Aspartate Amino Transf (AST/SGOT) 46H, Alanine Aminotransferase (ALT/SGPT) 54, Alkaline Phosphatase 134, Total Protein 6.4, Albumin 3.5, Immature Granulocyte % (Auto) 0, Neutrophils (%) (Auto) 73, Lymphocytes (%) (Auto) 16, Monocytes (%) (Auto) 9, Eosinophils (%) (Auto) 2, Basophils (%) (Auto) 0, Neutrophils # (Auto) 10.0H, Lymphocytes # (Auto) 2.2, Monocytes # (Auto) 1.2H, Eosinophils # (Auto) 0.2, Basophils # (Auto) 0.1, Immature Granulocyte # (Auto) 0.1 Microbiology 08/22/20 Gram Stain, Resulted Pending 08/22/20 Wound Culture - Preliminary, Resulted Staphylococcus aureus Assessment/Plan Assessment/Plan Assessment/Plan abscess/cellulitis - continue abx and fluids. continue diet. possible I&D tomorrow. Clinical Quality Measures DVT/VTE Risk/Contraindication: Risk Factor Score Per Nursin RFS Level Per Nursing on Admit: 2=Moderate HAIR BLISS DO 08/23/20 1230: History of Present Illness History of Present Illness Time Seen by Provider: 11:43 History of Present Illness HPI per ED: 50-year-old male presents with ingrown hair on his groin patient reports that started 2 days ago because of drainage since gotten significantly enlarged and painful today. Patient has surrounding warmth and erythema to the skin. That the pain goes up his groin and into his left thigh. Patient states some occasional chills. No other systemic complaints. When I spoke to pt this afternoon he denies ever having something like this before. He does feel better than he did last night and thinks the area of redness has gotten smaller. Allergies and Home Medications Allergies Coded Allergies: No Known Drug Allergies (Unverified , 10/18/09) Home Medications Ibuprofen 200 Mg Tablet, 400-600 MG PO Q8H PRN for PAIN-MILD (1-4), (Reported) Patient Home Medication List Home Medication List Reviewed: Yes Past Yppvigf-Iyvjpg-Hxrqwh Hx Patient Social History Alcohol Use: Occasionally Uses (2-3 beers a couple of times a wk) Recreational Drug Use: Yes (weed, meth) Smoking Status: Current Everyday Smoker Surgeries History of Surgeries: Yes Surgeries: Abdominal (ruptured intestines 1993 and scar tissue repair 3 yrs ago) Respiratory History of Respiratory Disorde: No Cardiovascular History of Cardiac Disorders: No Neurological History of Neurological Disord: No Genitourinary History of Genitourinary Disor: No Gastrointestinal History of Gastrointestinal Di: No Musculoskeletal History of Musculoskeletal Dis: No Endocrine History of Endocrine Disorders: No HEENT History of HEENT Disorders: No Loss of Vision: Denies Hearing Impairment: Denies Psychosocial History of Psychiatric Problem: No Integumentary History of Skin or Integumenta: No (none prior to this one) Family Medical History Significant Family History: Heart Disease (grandpa - of heart attack), Cancer (grandpa - lung cancer), Other Conditions/Hx (mom - brain tumor) Review of Systems-General Constitutional: chills, diaphoresis, fever EENTM: No ear discharge, No hearing loss, No ear pain, No blurred vision, No double vision, No eye pain Respiratory: No cough, No dyspnea on exertion Cardiovascular: No chest pain, No palpitations Gastrointestinal: No abdominal pain, No nausea, No vomiting Genitourinary: dysuria, frequency, hematuria Musculoskeletal: No joint pain; muscle stiffness Skin: change in color; No change in hair/nails; lumps (L Groin), other (see HPI) Psychiatric/Neurological: Denies Anxiety, Denies Depressed; Headache; Denies Seizure Other pt denies any hx of abnormal bleeding or bruising Physical Exam-General Problems Physical Exam General Appearance: WD/WN, no apparent distress Eyes: Bilateral Eye PERRL, Bilateral Eye EOMI HEENT: pharynx normal; No scleral icterus (R), No scleral icterus (L) Neck: non-tender, supple Respiratory: lungs clear, normal breath sounds, no respiratory distress, no accessory muscle use Cardiovascular: regular rate, rhythm, no murmur Gastrointestinal: non tender, soft Genital/Rectal: tenderness (L groin mass, erythematous, further within borders, hard) Extremities: no pedal edema, no calf tenderness Neurologic/Psychiatric: cable puller II-XII nml as tested, alert, normal mood/affect, oriented x 3 Skin: other (firm area in groin, with erythema into left upper leg. On groin there is a small area of purlence just below the skin, no obvious fluctuance) Lymphatic: no adenopathy (neck, axilla or right groin.....left groin is hard to examine) Assessment/Plan Assessment/Plan Assessment/Plan Left Lower Extremity/Groin Cellulitis IV ABX, IV fluids, pain control, Tylenol as needed for Pyrexia. Will start diet and then make NPO after midnight; reassess the area in am for possible I&D. Cellulitis is better and US does not show an obvious fluid collection to be drained; however, sometimes opening the area up allows for faster healing. Pt is agreeable to this plan; did give him options of going home (AMA) or going to OR today. Supervisory-Addendum Brief Verification & Attestation Participated in pt care: history, MDM, physical Personally performed: exam, history, MDM Care discussed with: Medical Student Procedures: n/a Verification and Attestation of Medical Student E/M Service A medical student performed and documented this service. I then reviewed and verified all information documented by the medical student and made modifications to such information, when appropriate. I personally performed a physical exam, medical decision making and then discussed any differences between the notes and made revisions as necessary to create one note. Hair Bliss , 08/23/20 , 12:34 ALBERTA MARCUS MED STUDENT Aug 23, 2020 12:02 HAIR BLISS DO Aug 23, 2020 12:30
--- NOTE | 2020-08-23 13:44 | Diagnostic Imaging Report ---
EXAM: Ultrasound left lower extremity. DATE: August 23, 2020. INDICATION: 50-year-old male, concern for abscess in the left inguinal region. COMPARISON: CT abdomen/pelvis April 01, 2017. FINDINGS: Targeted ultrasound of the left inguinal region was performed. There is nonspecific subcutaneous edema. There is no demonstrated well-demarcated drainable fluid collection. There is no demonstrated mass. There is a left inguinal lymph node with normal lymph node morphology measuring up to 10 mm in size. IMPRESSION: 1. Nonspecific subcutaneous edema without demonstrated focal fluid collection or abscess. 2. There is a 10 mm left inguinal lymph node with normal-appearing lymph node morphology. Dictated by: Dictated on workstation # [id number]
[2020-08-23 15:30] VITALS: BP 111/67
--- NOTE | 2020-08-23 15:55 | NUR ---
RN WENT TO ADMINISTER ANTIBIOTIC, PT WASN'T IN ROOM. PHOTOGRAMMETRY AIRPLANE PILOT SAID SHE SEEN HIM AMBULATING IN [facility]. PT MUST HAVE WENT TO [facility]OUND [facility]EL, WILL CONTINUE TO LOOK FOR PT, IF HE'S NOT FOUND SOON WILL NOTIFY HOUSE.
[2020-08-23 20:00] VITALS: BP 108/65
[2020-08-24] VITALS (13 sets, daily range): BP systolic 85–118; BP diastolic 49–71
[2020-08-24] MEDS ORDERED: TROUGH ORDER-PHARMACY XX NR (05:00)
[2020-08-24] MEDS: CATHETER FLUSH 10 ML SYR IV SCH ×2 (05:51→14:12)
[2020-08-24] MEDS: fentaNYL INJECTION 100 MCG/2 ML AMP IV PRN ×2 (06:01→16:09)
[2020-08-24] MEDS: CLINDAMYCIN 600 MG/50 ML IVPB 50 ML IV SCH ×3 (06:01→22:17)
[2020-08-24 06:29] LABS: BASOPHILS % (AUTO) 0 % (0-10); EOSINOPHILS # (AUTO) 0.3 10^3/uL (0.0-0.3); EOSINOPHILS % (AUTO) 2 % (0-10); HEMATOCRIT 41 % (40-54); HEMOGLOBIN 13.2 g/dL (13.3-17.7); LYMPHOCYTES # (AUTO) 1.9 10^3/uL (1.0-4.0); LYMPHOCYTES % (AUTO) 16 % (12-44); MEAN CORPUSCULAR HEMOGLOBIN 31 pg (25-34); MEAN CORPUSCULAR HGB CONC 32 g/dL (32-36); MEAN CORPUSCULAR VOLUME 94 fL (80-99); MEAN PLATELET VOLUME 9.7 fL (9.0-12.2); MONOCYTES # (AUTO) 0.8 10^3/uL (0.0-1.0); MONOCYTES % (AUTO) 7 % (0-12); NEUTROPHILS # (AUTO) 8.5 10^3/uL (1.8-7.8); NEUTROPHILS % (AUTO) 74 % (42-75); PLATELET COUNT 359 10^3/uL (130-400); WHITE BLOOD COUNT 11.5 10^3/uL (4.3-11.0)
--- NOTE | 2020-08-24 07:49 | Progress Note - Surgery ---
ALBERTA MARCUS MED STUDENT 08/24/20 0749: Subjective Date Seen by a Provider: Aug 24, 2020 Time Seen by a Provider: 07:05 Subjective/Events-last exam Pt states he's ok this morning. Pt reports drainage from abscess last night of white fluid. Pt believes swelling and redness has decreased. When touched, pt reports 9/10 pain. Pt states he had a fever and HOLDEN yesterday. He had BM yesterday that was loose like diarrhea but denies blood and issues w/ urination. Pt is only walking around in room d/t MRSA culture of abscess. Pt reports no difficulty w/ food and can't get enough food. Pt was asking about food today b/c he was made NPO at midnight. Pt prefers I&D at bedside so he can eat sooner. When I looked at the abscess, it looked worse than yesterday. the erythema had spread outside the original margins and grew a couple of cm laterally and down towards the leg. The indurated area increased and spread out. Pt has a pinpoint area in the center w/ white discharge. Nurse states that this morning, he had skin flaking off. Review of Systems General: No Chills, No Night Sweats HEENT: Head Aches; No Visual Changes, No Eye Pain, No Ear Pain Pulmonary: No Dyspnea, No Cough Cardiovascular: No: Chest Pain Gastrointestinal: No: Nausea, Vomiting, Abdominal Pain Musculoskeletal: other (groin pain tender to touch) Neurological: No: Weakness, Numbness Focused Exam Lactate Level 08/22/20 17:18: Lactic Acid Level 1.45 Objective Exam Vital Signs Date Time Temp Pulse Resp B/P (MAP) Pulse Ox O2 Delivery O2 Flow Rate FiO2 08/24/20 07:16 37.0 93 20 112/64 (80) 96 Room Air 08/24/20 04:10 36.9 98 20 110/71 (84) 95 Room Air 08/24/20 00:12 37.6 106 20 97/53 (68) 94 Room Air 08/23/20 23:07 37.4 08/23/20 21:20 38.0 08/23/20 21:20 Room Air 08/23/20 20:00 38.0 112 20 108/65 (79) 96 Room Air 08/23/20 15:30 37.0 103 18 111/67 (82) 99 Room Air 08/23/20 11:15 36.9 80 18 96/59 (71) 96 Room Air 08/23/20 08:00 Room Air I & O 08/24/20 07:00 Intake Total 1540 ml Output Total 1700 ml Balance -160 ml Capillary Refill : Less Than 3 SecondsLess Than 3 Seconds General Appearance: No Apparent Distress, WD/WN HEENT: PERRL/EOMI Neck: Non Tender, Supple Respiratory: Lungs Clear, Normal Breath Sounds, No Accessory Muscle Use, No Respiratory Distress Cardiovascular: Regular Rate, Rhythm, Normal Peripheral Pulses Gastrointestinal: non tender, soft Extremity: No Calf Tenderness, No Pedal Edema Neurologic/Psychiatric: Alert, Oriented x3, Normal Mood/Affect Skin: Erythema (groin erythema has spread) Results Lab Laboratory Tests 08/24/20 05:32: White Blood Count 11.5H, Red Blood Count 4.32, Hemoglobin 13.2L, Hematocrit 41, Mean Corpuscular Volume 94, Mean Corpuscular Hemoglobin 31, Mean Corpuscular Hemoglobin Concent 32, Red Cell Distribution Width 12.1, Platelet Count 359, Mean Platelet Volume 9.7, Immature Granulocyte % (Auto) 0, Neutrophils (%) (Auto) 74, Lymphocytes (%) (Auto) 16, Monocytes (%) (Auto) 7, Eosinophils (%) (Auto) 2, Basophils (%) (Auto) 0, Neutrophils # (Auto) 8.5H, Lymphocytes # (Auto) 1.9, Monocytes # (Auto) 0.8, Eosinophils # (Auto) 0.3, Basophils # (Auto) 0.0, Immature Granulocyte # (Auto) 0.0, Vancomycin Level Trough 8.9L Microbiology 08/22/20 Blood Culture - Preliminary, Resulted No growth 08/22/20 Gram Stain - Final, Resulted 08/22/20 Wound Culture - Preliminary, Resulted Staphylococcus aureus Assessment/Plan Assessment/Plan Assessment/Plan L LE/groid cellulitis - possible I&D today d/t fluid drainage and growth in erythema. continue IV abx. continue pain meds. Clinical Quality Measures DVT/VTE Risk/Contraindication: Risk Factor Score Per Nursin RFS Level Per Nursing on Admit: 2=Moderate HAIR BLISS DO 08/24/20 0955: Subjective Time Seen by a Provider: 09:41 Subjective/Events-last exam Pt seen and examined, states pain is about the same. Nursing marcelle wider line, indicating the erythema has spread. Review of Systems General: No Chills, No Night Sweats HEENT: Head Aches; No Visual Changes Pulmonary: No Dyspnea, No Cough Cardiovascular: No: Chest Pain Gastrointestinal: No: Nausea, Vomiting, Abdominal Pain Musculoskeletal: other (groin pain tender to touch) Objective Exam General Appearance: No Apparent Distress, WD/WN HEENT: PERRL/EOMI Respiratory: Lungs Clear, Normal Breath Sounds, No Accessory Muscle Use, No Respiratory Distress Cardiovascular: Regular Rate, Rhythm, No Murmur Gastrointestinal: non tender, soft Skin: Erythema (groin erythema has spread) Assessment/Plan Assessment/Plan Assessment/Plan L Thigh/Groin Cellulitis -appears worse, does have some drainage, plan to go to the OR for I&D with possible packing, possible debridement. Pt agreeable to this, will get consent. Supervisory-Addendum Brief Verification & Attestation Participated in pt care: history, MDM, physical Personally performed: exam, history, MDM Care discussed with: Medical Student Procedures: n/a Verification and Attestation of Medical Student E/M Service A medical student performed and documented this service. I then reviewed and verified all information documented by the medical student and made modifications to such information, when appropriate. I personally performed a physical exam, medical decision making and then discussed any differences between the notes and made revisions as necessary to create one note. Hair Bliss , 08/24/20 , 09:55 ALBERTA MARCUS MED STUDENT Aug 24, 2020 07:49 HAIR BLISS DO Aug 24, 2020 09:55
[2020-08-24] MEDS: VANCOMYCIN 1250 MG/NS 250 ML IVPB IV SCH ×2 (08:04)
[2020-08-24] MEDS: LACTATED RINGERS 1,000 ML IV SCH ×5 (08:04→23:54)
[2020-08-24] MEDS: cefTRIAXone 1,000 MG/SWFI 10 ML IV PUSH IV SCH ×2 (08:05)
--- NOTE | 2020-08-24 08:06 | NUR ---
VANCOMYCIN TROUGH 8.9 08/24 0530 (MAINT DOSE REGIMEN 1250MG Q12H). INCREASED DOSE TO 1500MG Q12H, WILL RECHECK VANCOMYCIN LEVEL 08/25 @ 1930. IF TROUGH >20, HOLD DOSE & NOTIFY PHARMACY FOR ADJUSTMENTS.
[2020-08-24] MEDS ORDERED: VANCOMYCIN INJECTION 1,500 MG in NS IV 500 ML 500 ML IV SCH (08:30)
[2020-08-24] MEDS ORDERED: VANCOMYCIN 500 MG/NS 100 ML IV NR ×2 (10:00)
[2020-08-24] MEDS ORDERED: MIDAZOLAM 2 MG/2 ML (VERSED) VIAL ONE (10:14)
[2020-08-24] MEDS ORDERED: fentaNYL INJECTION 100 MCG/2 ML AMP ONE (10:14)
[2020-08-24] MEDS ORDERED: proPOfol 200 MG/20 ML (DIPRIVAN) VIAL IV ONE ×2 (10:20→11:17)
[2020-08-24] MEDS ORDERED: LIDOCAINE PF 2% 5 ML (XYLOCAINE) VIAL ONE (10:20)
[2020-08-24] MEDS ORDERED: ONDANSETRON 4 MG/2 ML (SDV) Z0FRAN ONE (10:20)
[2020-08-24] MEDS ORDERED: SEVOFLURANE (ULTANE) 15 ML INHAL SOLN ONE (10:21)
[2020-08-24] MEDS ORDERED: ROCURONIUM 10 MG/ML 5 ML SYRINGE IV ONE (10:21)
[2020-08-24 10:39] LABS: AMPHETAMINE SCREEN, URINE POSITIVE (NEGATIVE); BARBITURATE SCREEN URINE NEGATIVE (NEGATIVE); BENZODIAZEPINES SCREEN URINE NEGATIVE (NEGATIVE); CANNABINOID SCREEN, URINE NEGATIVE (NEGATIVE); COCAINE SCREEN URINE NEGATIVE (NEGATIVE); METHADONE STAT NEGATIVE (NEGATIVE); METHAMPHETAMINE SCREEN URINE S NEGATIVE (NEGATIVE); OPIATE SCREEN URINE NEGATIVE (NEGATIVE); OXYCODONE STAT NEGATIVE (NEGATIVE); PROPOXYPHENE STAT NEGATIVE (NEGATIVE); TRICYCLIC ANTIDEPRESSANTS SCRE NEGATIVE (NEGATIVE)
--- NOTE | 2020-08-24 10:54 | NUR ---
PT TRANSFERRED TO OR VIA BED AT THIS TIME.
--- NOTE | 2020-08-24 11:37 | Progress Note-Post Operative ---
Post-Operative Progess Note Surgeon (s)/Hvac/R Service Technician (s) Surgeon EMMY BLISS DO Hvac/R Service Technician: CAROLINE Maldonado Pre-Operative Diagnosis Left Inguinal Abscess and upper thigh Post-Operative Diagnosis same Procedure & Operative Findings Date of Procedure 08/24/20 Procedure Performed/Findings I&D with debridement and packing Anesthesia Type LMA Estimated Blood Loss Estimated blood loss (mL): less than 10ml Specimens/Packing Specimens Removed purulent fluid EMMY BLISS DO Aug 24, 2020 11:37
--- NOTE | 2020-08-24 11:42 | Anesthesia-General Post-Op ---
General Patient Condition Mental Status/LOC: Same as Preop Cardiovascular: Satisfactory Nausea/Vomiting: Absent Respiratory: Satisfactory Pain: Controlled Complications: Absent Post Op Complications Complications None Follow Up Care/Instructions Patient Instructions None needed. Anesthesia/Patient Condition Patient Condition Patient is doing well, no complaints, stable vital signs, no apparent adverse anesthesia problems. No complications reported per nursing. MARIAH MINOR CRNA Aug 24, 2020 11:42
[2020-08-24] MEDS ORDERED: morphine INJ 10 MG/ML 1ML (SYR OR VIAL) IVP ONE (11:45)
[2020-08-24] MEDS ORDERED: ONDANSETRON 4 MG/2 ML (SDV) Z0FRAN IVP PRN (11:45)
[2020-08-24] MEDS ORDERED: MEPERIDINE (DEMEROL) INJ 50 MG/ML IVP ONE (11:45)
[2020-08-24] MEDS ORDERED: NICOTINE 21 MG (NICODERM) PATCH ONE (16:18)
[2020-08-24] MEDS ORDERED: NICOTINE 21 MG (NICODERM) PATCH TD NR (16:30)
--- NOTE | 2020-08-24 16:53 | OPERATIVE REPORT ---
DATE OF SERVICE: 08/24/2020 PREOPERATIVE DIAGNOSIS: Left inguinal abscess and the left upper thigh abscess. POSTOPERATIVE DIAGNOSIS: Left inguinal abscess and the left upper thigh abscess. PROCEDURES PERFORMED: Incision and drainage with debridement and packing of left upper thigh abscess. SURGEON: Hair Marcano DO. CROOK OPERATOR: SASKIA Bettencourt. SPECIMEN: Purulent fluid. BLOOD LOSS: Less than 10 mL. FLUIDS: Per anesthesia. POSTOPERATIVE CONDITION: Stable. INDICATION FOR PROCEDURE: The patient is a 50-year-old male, who has an abscess on the left inguinal region and the left upper thigh. It had gotten better yesterday, but then got worse today and needed this opened to release any purulent fluid. FINDINGS: The patient had some purulent fluid and also tracking down the fascia, but there was no tissue and was not necrotizing fasciitis. PROCEDURE NOTE: After informed consent was obtained, the patient had been marked. He was brought to the operating room. Surgical pause was performed, everyone agreed with the site marking. At this point, he was then sterilely prepped and draped in a normal fashion and an incision was made with a #15 blade right on the left inguinal region through a small opening where some purulent fluid was coming out, carried down through the skin into the subcutaneous tissue, then deepened down to the subcutaneous tissue with blunt dissection. This tracked more laterally and then down the thigh a little bit. This area measured about 6 cm down the thigh and about 4 to 5 cm lateral as well as the main incision was about 8 cm. We debrided some tissue with Bovie electrocautery and then copiously irrigated with normal saline, suctioned this out. Hemostasis was obtained using Bovie electrocautery. I then elected to pack this area with a half inch iodoform packing. We used the whole bottle to pack this area. Area was cleaned and dried, dressing was placed. The patient tolerated the procedure and transferred to the recovery room in stable condition. Sponge, instrument and needle count correct at the end of the case. Job ID: [id number] DocumentID: [id number] Dictated Date: 08/24/2020 11:37:23 Chief Of Pediatric Urology Date: 08/24/2020 16:52:58 Dictated By: HAIR MARCANO DO
[2020-08-24] MEDS: HYDROcodone/APAP 5 MG/325 MG (LORTAB) TAB PO PRN ×2 (19:46→23:53)
[2020-08-24] MEDS: VANCOMYCIN INJECTION 1,500 MG in NS IV 500 ML 500 ML IV SCH (19:51)
[2020-08-25 00:16] VITALS: BP 122/56
[2020-08-25 03:44] VITALS: BP 110/69
[2020-08-25] MEDS: HYDROcodone/APAP 5 MG/325 MG (LORTAB) TAB PO PRN ×4 (03:57→20:46)
[2020-08-25] MEDS: CLINDAMYCIN 600 MG/50 ML IVPB 50 ML IV SCH (05:53)
--- NOTE | 2020-08-25 07:18 | Progress Note - Surgery ---
ALBERTA MARCUS MED STUDENT 08/25/20 0718: Subjective Date Seen by a Provider: Aug 25, 2020 Time Seen by a Provider: 07:10 Subjective/Events-last exam Pt feels a lot better today b/c all the pressure is gone and it looks better. It's still painful, 4/10 piercing pain. Pt states he couldn't sleep well because he couldn't get comfortable. Pt also had heartburn last night but ate the same food as the day before. Pt has been walking around in room with little pain. Pt had flatulence and soft BM this morning, denies blood. Pt denies any troubles w/ urination. Pt thinks he may have had a small rash on his R forearm last night but it looked like dry skin. Pt denies fever, N/V. Pt had slight HOLDEN. Pt wants to know when he can leave. When I examined the area, there was less erythema and swelling than the day before. Area has been incised, drained, and packed yesterday. The bandages had moderate amount of blood but not leaking through the bandage. No white or yellow discharge was observed. Review of Systems General: No Chills HEENT: Head Aches; No Visual Changes, No Eye Pain, No Ear Pain Pulmonary: Dyspnea (When pt takes deep breath in, he feels like chest is tight and he wants to almost cough.); No Cough Cardiovascular: No: Chest Pain Gastrointestinal: No: Nausea, Vomiting, Abdominal Pain Musculoskeletal: No: neck pain, shoulder pain, arm pain, leg pain Neurological: No: Weakness, Numbness Focused Exam Lactate Level 08/22/20 17:18: Lactic Acid Level 1.45 Objective Exam Vital Signs Date Time Temp Pulse Resp B/P (MAP) Pulse Ox O2 Delivery O2 Flow Rate FiO2 08/25/20 03:44 36.8 81 20 110/69 (83) 94 Room Air 08/25/20 00:16 36.5 88 20 122/56 (78) 93 Room Air 08/24/20 19:51 Room Air 08/24/20 19:31 36.8 90 20 117/64 (81) 93 Room Air 08/24/20 15:38 36.4 79 18 111/61 (78) 95 Room Air 08/24/20 13:14 36.5 86 20 118/66 (83) 95 Room Air 08/24/20 12:25 Room Air 08/24/20 12:25 36.4 18 94/64 (74) 96 Room Air 08/24/20 12:20 18 92/61 (71) 96 Room Air 08/24/20 12:12 Room Air 08/24/20 12:10 18 88/56 (67) 100 OxyMask 2 08/24/20 12:05 OxyMask 3 08/24/20 12:00 18 88/51 (63) 100 OxyMask 6 08/24/20 11:50 18 85/49 (61) 99 OxyMask 6 08/24/20 11:50 OxyMask 6 08/24/20 11:40 18 95/61 (72) 97 OxyMask 6 08/24/20 11:37 OxyMask 6 08/24/20 11:37 36.6 18 96/65 (75) 96 OxyMask 6 08/24/20 08:09 Room Air 08/24/20 07:16 37.0 93 20 112/64 (80) 96 Room Air I & O 08/25/20 07:00 Intake Total 8707.5 ml Output Total 5200 ml Balance 3507.5 ml Capillary Refill : Less Than 3 SecondsLess Than 3 Seconds General Appearance: No Apparent Distress, WD/WN HEENT: PERRL/EOMI Neck: Non Tender, Supple Respiratory: Lungs Clear, Normal Breath Sounds, No Accessory Muscle Use, No Respiratory Distress Cardiovascular: Regular Rate, Rhythm, No Murmur Gastrointestinal: non tender, soft Extremity: No Calf Tenderness, No Pedal Edema Neurologic/Psychiatric: Alert, Oriented x3, Normal Mood/Affect Skin: Erythema (groin erythema and swelling has decreased since I&D.) Results Lab Laboratory Tests 08/24/20 09:45: Urine Opiates Screen NEGATIVE, Urine Oxycodone Screen NEGATIVE, Urine Methadone Screen NEGATIVE, Urine Propoxyphene Screen NEGATIVE, Urine Barbiturates Screen NEGATIVE, Ur Tricyclic Antidepressants Screen NEGATIVE, Urine Phencyclidine Screen NEGATIVE, Urine Amphetamines Screen POSITIVEH, Urine Methamphetamines Screen NEGATIVE, Urine Benzodiazepines Screen NEGATIVE, Urine Cocaine Screen NEGATIVE, Urine Cannabinoids Screen NEGATIVE 08/24/20 10:25: Coronavirus 2019 (JAKUB) Negative Microbiology 08/22/20 Blood Culture - Preliminary, Resulted No growth 08/22/20 Gram Stain - Final, Resulted 08/22/20 Wound Culture - Preliminary, Resulted Staphylococcus aureus Assessment/Plan Assessment/Plan Assessment/Plan L groin/thigh cellulitis - I&D yesterday w/ packing. area appears better w/ decreased erythema and swelling. continue fluids and abx. continue diet. possible discharge today. continue packing. Clinical Quality Measures DVT/VTE Risk/Contraindication: Risk Factor Score Per Nursin RFS Level Per Nursing on Admit: 2=Moderate EMMY BLISS DO 08/25/20 1159: Subjective Time Seen by a Provider: 11:48 Subjective/Events-last exam Pt seen and examined, states he feels pretty good today. His main complaint was of heartburn. Review of Systems General: No Chills Pulmonary: No Dyspnea, No Cough; Other (When pt takes deep breath in, he feels like chest is tight and he wants to almost cough.) Gastrointestinal: No: Nausea, Vomiting, Abdominal Pain Objective Exam General Appearance: No Apparent Distress, WD/WN Respiratory: Lungs Clear, Normal Breath Sounds, No Accessory Muscle Use, No Respiratory Distress Cardiovascular: Regular Rate, Rhythm, No Murmur Gastrointestinal: non tender, soft Skin: Erythema (groin erythema and swelling has decreased since I&D.) Assessment/Plan Assessment/Plan Assessment/Plan S/P I&D Left Groin/thigh Cellulitis Change packing today and teach pt, switch to PO ABX but will leave Vancomycin until he is discharged. Will see how he is doing later tonight for possible d/c or else d/c tomorrow am. Supervisory-Addendum Brief Verification & Attestation Participated in pt care: history, MDM, physical Personally performed: exam, history, MDM Care discussed with: Medical Student Procedures: n/a Verification and Attestation of Medical Student E/M Service A medical student performed and documented this service. I then reviewed and florence ified all information documented by the medical student and made modifications to such information, when appropriate. I personally performed a physical exam, medical decision making and then discussed any differences between the notes and made revisions as necessary to create one note. Emmy Bliss , 08/25/20 , 11:58 ALBERTA MARCUS MED STUDENT Aug 25, 2020 07:18 EMMY BLISS DO Aug 25, 2020 11:59
--- NOTE | 2020-08-25 07:33 | Anesthesia-General Post-Op ---
General Patient Condition Mental Status/LOC: Same as Preop Cardiovascular: Satisfactory Nausea/Vomiting: Absent Respiratory: Satisfactory Pain: Controlled Complications: Absent Post Op Complications Complications None Follow Up Care/Instructions Patient Instructions None needed. Anesthesia/Patient Condition Patient Condition Patient is doing well, no complaints, stable vital signs, no apparent adverse anesthesia problems. No complications reported per nursing. MARIAH MINOR CRNA Aug 25, 2020 07:33
[2020-08-25] MEDS: LACTATED RINGERS 1,000 ML IV SCH (07:42)
[2020-08-25] MEDS: VANCOMYCIN INJECTION 1,500 MG in NS IV 500 ML 500 ML IV SCH ×2 (07:42→20:43)
[2020-08-25] MEDS: cefTRIAXone 1,000 MG/SWFI 10 ML IV PUSH IV SCH ×2 (07:42)
[2020-08-25 08:00] VITALS: BP 129/68
[2020-08-25] MEDS ORDERED: FAMOTIDINE 20 MG (PEPCID) TABLET PO ONE (09:30)
[2020-08-25 12:00] VITALS: BP 115/69
[2020-08-25] MEDS: fentaNYL INJECTION 100 MCG/2 ML AMP IV PRN ×2 (12:07→16:51)
[2020-08-25 15:30] VITALS: BP 114/67
[2020-08-25] MEDS ORDERED: NICOTINE PATCH REMOVAL TP NR (16:30)
[2020-08-25] MEDS ORDERED: NICOTINE 21 MG (NICODERM) PATCH ONE (16:48)
[2020-08-25] MEDS ORDERED: NICOTINE PATCH REMOVAL TP SCH (16:59)
[2020-08-25] MEDS ORDERED: NICOTINE 21 MG (NICODERM) PATCH TD SCH (17:00)
[2020-08-25] MEDS: TRIM/SULFAMETH 160/800 (SEPTRA DS) TAB PO SCH (17:02)
[2020-08-25] MEDS ORDERED: TROUGH ORDER-PHARMACY XX NR (19:30)
[2020-08-25 20:36] VITALS: BP 115/67
[2020-08-26 00:19] VITALS: BP 120/67
[2020-08-26] MEDS: HYDROcodone/APAP 5 MG/325 MG (LORTAB) TAB PO PRN ×2 (01:57→08:46)
[2020-08-26 04:11] VITALS: BP 122/68
[2020-08-26 08:08] VITALS: BP 136/73
[2020-08-26] MEDS: TRIM/SULFAMETH 160/800 (SEPTRA DS) TAB PO SCH (08:34)
[2020-08-26] MEDS: VANCOMYCIN INJECTION 1,500 MG in NS IV 500 ML 500 ML IV SCH (08:34)
--- NOTE | 2020-08-26 09:51 | Progress Note - Surgery ---
Subjective Time Seen by a Provider: 09:41 Subjective/Events-last exam Pt seen and examined no new complaints; would like to go home. Dressing change yesterday was painful but not that bad. Review of Systems General: No Chills, No Night Sweats Pulmonary: No Dyspnea, No Cough Cardiovascular: No: Chest Pain, Palpitations Gastrointestinal: No: Nausea, Vomiting, Abdominal Pain Objective Exam Vital Signs Date Time Temp Pulse Resp B/P (MAP) Pulse Ox O2 Delivery O2 Flow Rate FiO2 08/26/20 08:08 36.5 77 20 136/73 (94) 94 Room Air 08/26/20 04:11 36.5 91 20 122/68 (86) 94 Room Air 08/26/20 00:19 36.8 90 20 120/67 (84) 95 Room Air 08/25/20 20:46 Room Air 08/25/20 20:36 36.7 86 18 115/67 (83) 94 Room Air 08/25/20 15:30 36.5 83 20 114/67 (83) 97 Room Air 08/25/20 12:00 36.6 92 20 115/69 (84) 94 Room Air I & O 08/26/20 07:00 Intake Total 5060 ml Output Total 2600 ml Balance 2460 ml Capillary Refill : Less Than 3 SecondsLess Than 3 Seconds General Appearance: No Apparent Distress, WD/WN HEENT: PERRL/EOMI Respiratory: Lungs Clear, Normal Breath Sounds, No Accessory Muscle Use, No Respiratory Distress Cardiovascular: Regular Rate, Rhythm, No Murmur Gastrointestinal: non tender, soft Neurologic/Psychiatric: Alert, Oriented x3 Skin: Erythema (groin erythema and swelling almost gone, looks good) Results Lab Laboratory Tests 08/25/20 19:40: Vancomycin Level Trough 13.7 Microbiology 08/22/20 Blood Culture - Preliminary, Resulted No growth 08/22/20 Gram Stain - Final, Complete 08/22/20 Wound Culture - Final, Complete Staphylococcus aureus Assessment/Plan Assessment/Plan Assessment/Plan S/P I&D Left Groin/thigh Cellulitis Change packing today and teach pt; d/c home this am. Clinical Quality Measures DVT/VTE Risk/Contraindication: Risk Factor Score Per Nursin RFS Level Per Nursing on Admit: 2=Moderate EMMY BLISS DO Aug 26, 2020 09:51
[2020-08-26] MEDS ORDERED: Trimethoprim/Sulfamethoxazole PO (09:54)
[2020-08-26] MEDS ORDERED: ACHD5005 PO (09:54)
--- NOTE | 2020-08-26 09:55 | Discharge Inst-Surgical ---
Discharge Inst-Surgical Depart Medication/Instructions New, Converted or Re-Newed RX: RX Given to Pt/Family Patient Instructions Follow up Appt: Make appointment for 1 week. [phone] Instructions: No lifting greater than 20 pounds. No strenuous activity. May shower in 24 hours, no tub bath or soaking. Use incentive spirometer at home as directed. No Smoking Skin/Wound Care: May remove bandages in am. Change dressing daily. Symptoms to Report: Appetite Changes, Extremity Discoloration, Numbness/Tingling, Swelling Increased, Bleeding Excessive, Eyesight Changes, Pain Increased, Urine Color Change, Constipation(Persistent), Fever over 101 degree F, Pain/Pressure in chest, Urinating Difficulty, Cough Up/Vomit Blood, Heart Beat Irreg/Pounding, Pain/Pressure in jaw, Cramps in feet or legs, Lightheadedness, Pain/Pressure in shoulder, Diarrhea(Persistent), Memory Changes Suddenly, Questions/Concerns, Weight gain consecutive days, Dizziness/Fainting, Nausea/Vomiting, Shortness of Breath, Weight gain over 2 pounds If questions or concerns contact your physician Or seek help at emergency department. Activity Activity Instructions: Avoid Stress to Incision Driving Instructions: No Driving/Refer to Dr. Daniel Discharge Diet: No Restrictions Diet After 24 Hours: Clear Liquid if Nauseous If Any Problems/Questions/Issu: Contact Your Physician, Go to Emergency Room Skin/Wound Care Infection Signs and Symptoms: Increased Redness, Foul Odor of Wound, Increased Drainage, Skin Itchy or Has a Rash, Increased Swelling, Temperature Above 101 F Bathing Instructions: EMMY Brizuela DO Aug 26, 2020 09:55
[2020-08-26] MEDS: fentaNYL INJECTION 100 MCG/2 ML AMP IV PRN (11:10)
[2020-08-26 12:25] VITALS: BP 136/73
== END 2020-08-26 12:25 | disposition home or self-care (01) | DRG 571 ==
LOC: EDUNIT# 16:35 → ER 16:37 → UNDOADMIN 17:27 → 4TH 17:27 → EDLOC 17:27 → UNDOADMOB 17:48 → 4TH 17:48 → UNDODISOB 08-26 12:25
PROVIDERS: ADMIT Surgery; ATTEND Surgery
PROC: 0Y960ZZ Drainage of Left Inguinal Region, Open Approach (ICD-10-PCS; 2020-08-24)
PROC: 0JBM0ZZ Excision of Left Upper Leg Subcutaneous Tissue and Fascia, Open Approach (ICD-10-PCS; principal; 2020-08-24 11:22)
DX: L02.214 Cutaneous abscess of groin (principal); L03.116 Cellulitis of left lower limb; B95.62 Methicillin resistant Staphylococcus aureus infection as the cause of diseases classified elsewhere; L73.1 Pseudofolliculitis barbae; F17.210 Nicotine dependence, cigarettes, uncomplicated; Z20.828 Contact with and (suspected) exposure to other viral communicable diseases
CPT/HCPCS: 36415; 76881; 80053; 80202; 80306; 83605; 85025; 85027; 86141; 87040; 87070; 87077; 87186; 87205; 87635; 96365; 96367; 96375

== ENCOUNTER 2021-01-31 20:01 | Emergency (ER) | payer SELFPAY ==
[~2021-01-31] VITALS: Ht 175.3 cm; Wt 83.9 kg
[~2021-01-31 20:01] MED LIST changes: +ACHD5005 PO; +IBUP-2473 PO; +Trimethoprim/Sulfamethoxazole PO
[2021-01-31 20:14] VITALS: BP 108/71
[2021-01-31] MEDS ORDERED: TETANUS,DIPTH,PERTUSS P/F (BOOSTRIX) 0.5 ML VIAL IM ONE (20:30)
--- NOTE | 2021-01-31 20:44 | ED Upper Extremity ---
General Chief Complaint: Laceration Stated Complaint: L THUMB LAC Source: patient Exam Limitations: no limitations History of Present Illness Date Seen by Provider: Jan 31, 2021 Time Seen by Provider: 20:41 Initial Comments To ER with a laceration of the dorsal aspect of the left thumb. He had just sharpened the knife and was using it to try to pry open a piece of plumbing. The knife slipped and cut his thumb. Tetanus is not up-to-date. Onset: just prior to arrival Severity: moderate Pain/Injury Location: left thumb Modifying Factors: Worse With Movement Allergies and Home Medications Allergies Coded Allergies: No Known Drug Allergies (Unverified , 10/18/09) Home Medications Hydrocodone/Acetaminophen 1 Each Tablet, 1 TAB PO Q8H PRN for PAIN-MODERATE (5- 7) Save for dressing changes Prescribed by: EMMY BLISS on 08/26/20 0954 Ibuprofen 200 Mg Tablet, 400-600 MG PO Q8H PRN for PAIN-MILD (1-4), (Reported) [Trimethoprim/Sulfamethoxazole] 1 EA TAB, 1 EA PO BID WITH MEALS Prescribed by: EMMY BLISS on 08/26/20 0954 Patient Home Medication List Home Medication List Reviewed: Yes Review of Systems Constitutional: see HPI EENTM: see HPI Respiratory: no symptoms reported Cardiovascular: no symptoms reported Genitourinary: no symptoms reported Musculoskeletal: see HPI Skin: no symptoms reported Psychiatric/Neurological: No Symptoms Reported Past Kjrbjhl-Bmdhme-Gxeatw Hx Patient Social History Type Used: Cigarettes Past Medical History Surgeries: Yes Abdominal Respiratory: No Cardiac: No Neurological: No Genitourinary: No Gastrointestinal: No Musculoskeletal: No Endocrine: No HEENT: No Loss of Vision: Denies Hearing Impairment: Denies Cancer: No Psychosocial: No Integumentary: No (none prior to this one) Blood Disorders: No Family Medical History Heart Disease, Cancer, Other Conditions/Hx Physical Exam Vital Signs Capillary Refill : Height, Weight, BMI Height: 5'9.00" Weight: 180lbs. 0.0oz. 81.147549im; 27.98 BMI Method:Stated General Appearance: WD/WN, no apparent distress Respiratory: no respiratory distress, no accessory muscle use Wrist: Yes normal inspection, Yes non-tender Hand: Left, laceration (There is a 1.5 cm laceration to the dorsal aspect of the left thumb over the proximal phalanx. Depth is down to the bone through the extensor tendon. As such she is unable to extend the thumb at the IP joint. This was irrigated with chlorhexidine/saline solution. The overlying skin was sutured together. I anesthetized the area with 1 mL of 1% lidocaine without epinephrine. Skin was sutured together with 4 simple interrupted sutures size 5-0 Ethilon. Discussed with him the need for orthopedic/hand surgery follow-up for extensor tendon repair. He is right-hand dominant.) Neurologic/Tendon: normal sensation, normal motor functions Neurologic/Psychiatric: alert, normal mood/affect, oriented x 3 Skin: normal color, warm/dry Progress/Results/Core Measures Results/Orders My Orders Orders - DELIO ZAIDI APRN Dipht,Pertuss(Acell),Tet Adult (Boostrix (01/31/21 20:30) Departure Impression Primary Impression: Finger laceration involving tendon Disposition: 01 HOME, SELF-CARE Condition: Stable Departure-Patient Inst. Decision time for Depature: 20:43 Referrals: KAVITHA MORENO,LOCAL PHYSICIAN (PCP) Primary Care Physician ANNE CHACKO MD, MICHAEL P MD Patient Instructions: Laceration Repair With Stitches ED Add. Discharge Instructions: 1. Wear the splint at all times except when showering. Stitches should remain in place for about 7 to 10 days. Call an orthopedic surgeon of your choosing tomorrow to schedule evaluation for surgical repair of this extensor tendon laceration. Pain medication as needed. All discharge instructions reviewed with patient and/or family. Voiced understanding. DELIO ZAIDI APRN Jan 31, 2021 20:44
== END 2021-01-31 20:55 | disposition home or self-care (01) ==
LOC: EDUNIT# 20:01 → ER 20:02
DX: S56.322A Laceration of extensor or abductor muscles, fascia and tendons of left thumb at forearm level, initial encounter (principal); Z23 Encounter for immunization; W26.0XXA Contact with knife, initial encounter
CPT/HCPCS: 12011; 29130; 90715